=== PATIENT | female | born 1940 | race Caucasian/White ===

== ENCOUNTER 2017-02-27 17:37 | Emergency (ER) | payer MEDICARE ==
[2017-02-27] MEDS ORDERED: Sodium Phosphate ADULT ENEMA* 118 ml bottle PR ONE (18:51)
[2017-02-27 20:17] VITALS: BP 119/82
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
== END 2017-02-27 20:16 | disposition home or self-care (01) ==
LOC: ED 17:37
DX: K59.00 Constipation, unspecified (principal)
CPT/HCPCS: 99282; A9270-GY